=== PATIENT | male | born 1965 | race Caucasian/White ===

== ENCOUNTER → 2016-09-15 | Outpatient (CLI) | payer MEDICARE | END | disposition home or self-care (01) | LOC: PCVCCLINIC 15:56 | PROVIDERS: ATTEND Nuclear Medicine Nuclear Cardiology | DX: E11.9 Type 2 diabetes mellitus without complications (principal); I73.9 Peripheral vascular disease, unspecified; M86.9 Osteomyelitis, unspecified; F19.10 Other psychoactive substance abuse, uncomplicated; S81.809A Unspecified open wound, unspecified lower leg, initial encounter; I48.91 Unspecified atrial fibrillation; I42.9 Cardiomyopathy, unspecified; Z79.4 Long term (current) use of insulin; Z79.82 Long term (current) use of aspirin; Z79.899 Other long term (current) drug therapy; Z87.891 Personal history of nicotine dependence | CPT/HCPCS: G0463 ==

== ENCOUNTER → 2016-09-22 | Outpatient (CLI) | payer MEDICARE ==
[~2016-09-22] MED LIST: ASPIRIN 325 MG TABLET ONE; CLOPIDOGREL BISULFATE 75 MG TABLET ONE; DIAZEPAM 10 MG TABLET. ONE; EPTIFIBATIDE BOLUS 2,000 MCG/ML 10ML VIAL. IV ONE; HEPARIN 1,000 UNIT/ML VIAL for PCVC ONE; HEPARIN SODIUM 5,000 UNIT/ML VIAL for PCVC. ONE; IODIXANOL 270 MG/ML 100 ML VIAL. ONE; IV NORMAL SALINE 1000ML BAG 1,000 ML ONE; IV NORMAL SALINE 500ML BAG 0 ML ONE; LIDOCAINE 1% Multi-Dose 20 ML VIAL. ONE; MIDAZOLAM HCL/PF 2 MG/2 ML VIAL. ONE; VANCOMYCIN 1GM IVPB FOR OMNI 0 ML ONE; diphenhydrAMINE 50 MG/ML VIAL ONE; fentaNYL PF VIAL 100 MCG/2 ML VIAL ONE
--- NOTE | 2016-09-23 08:08 | PCVCINTER ---
EXAM: 1. AORTOGRAM AND BILATERAL LOWER EXTREMITY RUNOFF ANGIOGRAM 2. BILATERAL RENAL ANGIOGRAPHY INDICATION: Peripheral arterial disease. Nonhealing ulcers right lower leg. PROCEDURE: Procedure and risks of angiography intervention is appropriate including limb loss stroke and were discussed with the patient's family and consent obtained. The patient's left groin was prepped abnormal sterile fashion. IV conscious sedation was used to procedure with appropriate monitoring for 60 minutes. Ultrasound was used to interrogate the left groin and showed the left common femoral artery to be patent. A permanent spot film was obtained. Under ultrasound guidance access into the left common femoral artery was obtained and a 5 Congolese sheath was placed. Through this a 5 Congolese flush catheter was placed into the abdominal aorta at the level of the renal arteries and AP aortogram was performed. Catheter was positioned at the aortic bifurcation and both oblique views of the pelvis were obtained. Catheter was positioned into the left external iliac artery and right leg runoff angiography was performed. Catheter was exchanged for a visceral catheter was placed into the right renal arteries and right renal angiograms obtained. Catheter was placed into the the left renal arteries and left renal angiograms were obtained. Catheter was advanced to the level of the right external iliac artery and left leg runoff angiography was obtained. Catheters and wires removed. Sheath was removed and hemostasis obtained using the Exoseal device. No immediate complications. FINDINGS: Aortogram: There is one right and one left renal artery. Infrarenal abdominal aorta shows minimal plaque without significant stenosis. Pelvis: The right and left common iliac, internal iliac, and external iliac arteries all show excellent patency. Right renal artery: Minimal plaque proximal vessel. No branch vessel stenosis. Left renal artery: Minimal plaque proximal vessel. No branch vessel stenosis. Right leg: The common femoral and profunda femoral arteries show good patency. The superficial femoral artery and popliteal arteries are widely patent. The anterior tibial, peroneal, and posterior tibial arteries are large vessels and widely patent. Left leg: The common femoral and profunda femoral arteries show good patency. The superficial femoral artery and popliteal arteries are widely patent. The anterior tibial, peroneal, and posterior tibial arteries are large vessels and widely patent. IMPRESSION: No evidence of significant aortoiliac stenosis. No flow limiting arterial stenosis seen in either lower extremity. Good three-vessel runoff into both feet. LOC:[id number]
== END | disposition home or self-care (01) ==
LOC: PCVCINTER 08:59
PROVIDERS: ATTEND Nuclear Medicine Nuclear Cardiology
DX: I70.213 Atherosclerosis of native arteries of extremities with intermittent claudication, bilateral legs (principal)
CPT/HCPCS: 36246; 36252; 75716; 76937; 99152; 99153; C1751; C1760; C1769; C1894; J1200; J1644; J2250; J3010; J7030; Q9966; J1327; J3370; J7040